=== PATIENT | female | born 1995 | race African-American/Black ===

== ENCOUNTER 2016-10-05 19:07 | Emergency (ER) | payer SELFPAY ==
[~2016-10-05] VITALS: Ht 160 cm; Wt 108.0 kg
[2016-10-05 19:16] VITALS: BP 132/89; PULSE 88; RESP 18; TEMP 99.1; O2SAT 96
--- NOTE | 2016-10-05 19:59 | PD ---
HPI Chief Complaint: Psychiatric Symptoms Time Seen by Provider: 19:23 Travel History International Travel<30 days: No Contact w/Intl Traveler<30days: No Traveled to known affect area: No History of Present Illness HPI Said 21-year-old woman presents to the emergency department complaining of increased suicidal thoughts, under a Garcia act, after she reported to her fianc that she took a handful of ibuprofen at about 1 or 2 PM this afternoon. She reports feeling more depressed. She states she is not sure what happened when she took the medicines, but does endorse that she was trying to hurt herself. She called her fianc told her that she had taken the medicines and he called the police. Police placed under a Garcia act. When asked about hearing things other people don't hear or seeing things other C she states that she takes a lot of "self abuse" which she appears to clarify demeaning fixating on negative thoughts. It does not appear that she has any evidence of thought insertion, voices, or delusional thoughts. She denies any history of depression. She does endorse that she try to hurt herself before but nothing ever came of it. She denies doing anything else today to try to hurt herself or taking any other medications. History Past Medical History Medical History: Denies Significant Hx Tetanus Vaccination: Unknown Influenza Vaccination: No LMP: 09/21/16 Social History Alcohol Use: No Tobacco Use: No Review of Systems Except as stated in HPI: all other systems reviewed are Neg Physical Exam Narrative GENERAL: 20 year-old woman, flat affect, no acute distress. SKIN: Focused skin assessment warm/dry. HEAD: Atraumatic. Normocephalic. EYES: Pupils equal and round. No scleral icterus. No injection or drainage. ENT: No nasal bleeding or discharge. Mucous membranes pink and moist. NECK: Trachea midline. No JVD. CARDIOVASCULAR: Regular rate and rhythm. No murmur appreciated. RESPIRATORY: No accessory muscle use. Clear to auscultation. Breath sounds equal bilaterally. GASTROINTESTINAL: Abdomen soft, non-tender, nondistended. Hepatic and splenic margins not palpable. MUSCULOSKELETAL: No obvious deformities. No edema. NEUROLOGICAL: Awake and alert. No obvious cranial nerve deficits. Motor grossly within normal limits. Normal speech. PSYCHIATRIC: Depressed mood, flat affect, insight and judgment fair. Data Data Last Documented VS Vital Signs Date Time Temp Pulse Resp B/P Pulse Ox O2 Delivery O2 Flow Rate FiO2 10/05/16 19:22 18 10/05/16 19:16 99.1 88 132/89 96 Orders Complete Blood Count With Diff (10/05/16 19:24) Comprehensive Metabolic Panel (10/05/16 19:24) Ed Urine Pregnancytest Poc (10/05/16 19:24) Psych Screen (10/05/16 19:24) Drug Screen, Random Urine (10/05/16 19:24) Salicylates (Aspirin) (10/05/16 19:25) Tylenol (Acetaminophen) (10/05/16 19:25) Electrocardiogram (10/05/16 ) Labs Laboratory Tests Test 10/05/16 10/05/16 19:30 19:55 White Blood Count 5.9 TH/MM3 Red Blood Count 4.50 MIL/MM3 Hemoglobin 11.8 GM/DL Hematocrit 36.8 % Mean Corpuscular Volume 81.8 FL Mean Corpuscular Hemoglobin 26.1 PG Mean Corpuscular Hemoglobin 31.9 % Concent Red Cell Distribution Width 13.8 % Platelet Count 282 TH/MM3 Mean Platelet Volume 8.6 FL Neutrophils (%) (Auto) 64.9 % Lymphocytes (%) (Auto) 23.0 % Monocytes (%) (Auto) 10.7 % Eosinophils (%) (Auto) 1.0 % Basophils (%) (Auto) 0.4 % Neutrophils # (Auto) 3.8 TH/MM3 Lymphocytes # (Auto) 1.3 TH/MM3 Monocytes # (Auto) 0.6 TH/MM3 Eosinophils # (Auto) 0.1 TH/MM3 Basophils # (Auto) 0.0 TH/MM3 CBC Comment DIFF FINAL Differential Comment Sodium Level 139 MEQ/L Potassium Level 4.1 MEQ/L Chloride Level 105 MEQ/L Carbon Dioxide Level 25.3 MEQ/L Anion Gap 9 MEQ/L Blood Urea Nitrogen 9 MG/DL Creatinine 1.10 MG/DL Estimat Glomerular Filtration 74 ML/MIN Rate Random Glucose 84 MG/DL Calcium Level 8.7 MG/DL Total Bilirubin 0.5 MG/DL Aspartate Amino Transf 30 U/L (AST/SGOT) Alanine Aminotransferase 35 U/L (ALT/SGPT) Alkaline Phosphatase 119 U/L Total Protein 8.1 GM/DL Albumin 3.9 GM/DL Salicylates Level LESS THAN 1.7 MG/DL Acetaminophen Level LESS THAN 2.0 MCG/ML Urine Opiates Screen NEG Urine Barbiturates Screen NEG Urine Amphetamines Screen NEG Urine Benzodiazepines Screen NEG Urine Cocaine Screen NEG Urine Cannabinoids Screen NEG MDM Medical Decision Making Medical Screen Exam Complete: Yes Emergency Medical Condition: Yes Interpretation(s) My review of EKG: Normal sinus rhythm at a rate of 81, normal axis, normal intervals, no definite evidence of acute ischemia. QTC 396, QRS 86. LABS: CBC unremarkable. CMP CMP is unremarkable. Salicylates negative Acetaminophen negative Urine drug screen negative Differential Diagnosis Depression, adjustment reaction, suicidality, other Narrative Course Medical decision making 21-year-old woman presents emergent department under a Garcia act for suicidal thoughts. Reports that she took a "handful" of [id number] ibuprofen that about 1:59 PM. She looks well. We'll check screening labs, EKG, psych to see. FINAL: Patient is medically clear for psychiatric evaluation. Disposition: 01 DISCHARGE HOME Condition: Stable Bertin Boudreaux MD October 05, 2016 19:59
[2016-10-05 20:04] LABS: AUTOMATED NEUTROPHIL # 3.8 TH/MM3 (1.8-7.7); BASOPHIL % 0.4 % (0.0-2.0); EOSINOPHIL # 0.1 TH/MM3 (0-0.4); HEMATOCRIT 36.8 % (35.0-46.0); HEMO FLAGS DIFF FINAL; LYMPHOCYTE # 1.3 TH/MM3 (1.0-4.8); MEAN CELL VOLUME 81.8 FL (80.0-100.0); MEAN CORPUSCULAR HEMOGLOBIN 26.1 PG (27.0-34.0); MEAN CORPUSCULAR HGB CONC 31.9 % (32.0-36.0); MONO % 10.7 % (0.0-8.0); NEUT % 64.9 % (16.0-70.0); PLATELET COUNT 282 TH/MM3 (150-450); RED CELL DISTRIBUTION WIDTH 13.8 % (11.6-17.2); WHITE BLOOD COUNT 5.9 TH/MM3 (4.0-11.0)
[2016-10-05 20:32] LABS: ANION GAP 9 MEQ/L (5-15); AST (GOT) 30 U/L (15-37); BICARBONATE 25.3 MEQ/L (21.0-32.0); BLOOD UREA NITROGEN 9 MG/DL (7-18); CHLORIDE 105 MEQ/L (98-107); GLOMERULAR FILTRATION RATE 74 ML/MIN (>89); POTASSIUM 4.1 MEQ/L (3.5-5.1); SODIUM (NA) 139 MEQ/L (136-145)
[2016-10-05 20:35] LABS: ALKALINE PHOSPHATASE 119 U/L (45-117); ALT (GPT) 35 U/L (10-53); TOTAL BILIRUBIN ADULT 0.5 MG/DL (0.2-1.0)
[2016-10-05 20:35] LABS: AMPHETAMINE, URINE NEG (NEG); BARBITURATES, URINE NEG (NEG); COCAINE, URINE NEG (NEG)
--- NOTE | 2016-10-06 14:49 | EKG ---
Date Performed: 10/05/2016 Time Performed: 20:11:33 PTAGE: 21 years EKG: Sinus rhythm WITH SINUS ARRHYTHMIA POSSIBLE RIGHT VENTRICULAR CONDUCTION DELAY BORDERLINE ECG NO PREVIOUS TRACING DOCTOR: Juan Carlos Miles Interpretating Date/Time 10/06/2016 14:43:17
== END 2016-10-06 00:54 ==
LOC: NEPD 19:07
DX: F32.9 Major depressive disorder, single episode, unspecified (principal); R45.851 Suicidal ideations
CPT/HCPCS: 80053; 80307; 84703; 85025; 93005